=== PATIENT | female | born 1990 | race Caucasian/White ===

== ENCOUNTER 2019-04-09 15:55 | Emergency (ER) | payer OTHER, MEDICAID, SELFPAY ==
[2019-04-09 16:13] VITALS: BP 120/79; PULSE 63; RESP 18; TEMP 36.9; O2SAT 100; BMI 25.8
--- NOTE | 2019-04-09 17:28 | ED.HEATRA ---
HPI - Head Injury General Chief complaint: Head Injury Stated complaint: fall in shower, hit head hard, does not feel well Time Seen by Provider: 04/09/19 17:12 Source: patient Mode of arrival: ambulatory Limitations: no limitations History of Present Illness HPI Narrative: Patient is a 28-year-old female here for evaluation of injuries that she sustained earlier today. Patient states that she fell while she was in her bathroom. States she hit the left side of her head. There was no loss of consciousness however since then she has had a severe headache, nausea, no vomiting, balance issues, and generally not feeling very well. She was also complaining of neck pain. Has never had a head injury in the past. He is not on any blood thinners. No other injuries reported from the event. Has been ambulatory since the event. Related Data Home Medications Medication Instructions Recorded Confirmed Lantus Solostar U-100 Insulin 50 units SUBCUT QAM #0 12/05/11 04/09/19 insulin lispro [Humalog U-100 15 units SUBCUT AC #0 12/05/11 04/09/19 Insulin] escitalopram oxalate 20 mg PO DAILY 04/09/19 04/09/19 norethindrone-e.estradiol-iron 1 tab PO DAILY 04/09/19 04/09/19 prazosin 2 mg PO BEDTIME 04/09/19 04/09/19 terbinafine HCl 250 mg PO DAILY 04/09/19 04/09/19 trazodone 25 - 50 mg PO BEDTIME 04/09/19 Allergies Allergy/AdvReac Type Severity Reaction Status Date / Time No Known Drug Allergies Allergy Verified 04/09/19 16:13 Review of Systems Constitutional Denies frequent falls, Reports headache(s) and Reports lethargy Eyes Reports blurry vision ENT Ears, Nose, Mouth, and Throat: Reports dizziness, Reports headache(s), Reports neck pain and Reports disequilibrium Cardiovascular Denies chest pain and Denies dyspnea Respiratory Denies dyspnea Gastrointestinal Gastrointestinal: Denies abdominal pain, Reports nausea and Denies vomiting Musculoskeletal Denies abnormal gait, Denies back pain, Denies myalgias and Reports neck pain Integumentary/Breasts Comments: Bump on the left side of her head Neurologic Denies abnormal gait, Denies behavioral changes, Denies confusion, Reports dizziness, Denies frequent falls, Reports headache(s), Denies lack of coordination, Denies focal weakness and Reports disequilibrium Psychiatric Denies behavioral changes and Denies confusion Hematologic/Lymphatic Denies easy bleeding and Denies easy bruising COUNT INCLUDES THE [facility] Medical History Patient denies medical problems (Acute) Social History Smoking Status: Never smoker Social History Smoking Status: Never smoker Exam Initial Vital Signs Initial Vital Signs: Vital Signs Temperature 98.5 F 04/09/19 16:13 Pulse Rate 63 04/09/19 16:13 Respiratory Rate 18 04/09/19 16:13 Blood Pressure 120/79 04/09/19 16:13 Pulse Oximetry 100 04/09/19 16:13 Const General: cooperative, comfortable, well developed, well groomed and No acute distress Orientation: alert, awake and oriented x3 HENMT Head: No abrasion, contusion, hematoma and other (Patient with a contusion on the left parietal/temporal portion of the scalp) Nose: external nose normal Face and sinus: normal facial exam Eyes Pupils: PERRL Resp Effort & Inspection: normal respiratory effort Auscultation: clear to auscultation bilaterally Cardio Rate: regular rate Rhythm: regular rhythm GI Inspection: non-distended Back/Spine/Pelvis Cervical Spine: collar present, pain with cervical ROM and cervical spinal tenderness (Midline proximal cervical) Thoracic/Lumbar Spine: No thoracic spinal tenderness and No lumbar spinal tenderness Skin Other: Contusion to the left temporal/parietal aspect of the scalp. No breaks in the skin. Neuro General: alert and awake Cognition: normal cognition Speech: speech normal Motor: muscle tone normal throughout Sensory Exam: no sensory deficits noted Extrem General: normal to inspection and capillary refill normal Psych Appearance: grossly normal and well kempt Scores GCS Risa coma scale eye opening: Spontaneous [place] coma scale verbal response: Orientated Risa coma scale motor response: Obey commands [place] coma scale total score: 15 Nexus Score for C-Spine Focal Neurologic deficit present: No Midline spinal tenderness present: Yes Altered level of conciousness present: No Intoxication present: No Distracting Injury Present: No Nexus Criteria for C-spine: 1 Course Orders Ordered: ED Orders 04/09/19 17:27 CT cervical spine wo con Stat CT head/brain wo con Stat Discontinued Medications Hydrocodone Bitart/Acetaminophen ([place] 5/325) 1 tab PO NOW ONE Stop: 04/09/19 17:29 Last Admin: 04/09/19 18:11 Dose: 1 tab Vital Signs - 8 hr 04/09/19 16:13 04/09/19 18:50 Temperature 98.5 F Pulse Rate 63 66 Respiratory Rate 18 18 Blood Pressure 120/79 Blood Pressure [Left Arm] 123/77 Pulse Oximetry 100 98 MDM - Head Injury Imaging Data CT scan - head: Radiologist's impression: [address] [address] [address] Scan Report Signed Patient: Jaquelin Kramer MMR#: [id number] : 1990Acct:[id number] Age/Sex: 28 / FDate of Service: 04/09/19 Loc: ED Accession Number: [id number] Procedure: CT head/brain wo con Ordering Provider: Chintan rFank D.O. PROCEDURE: CT HEAD/BRAIN WO CON INDICATIONS: Fall, left-sided contusion, severe headache TECHNIQUE: Noncontrast 4.5 mm thick angled axial sections acquired from the foramen magnum to the vertex, with coronal and sagittal reformats. For radiation dose reduction, the following was used: automated exposure control, adjustment of mA and/or kV according to patient size. COMPARISON: None. FINDINGS: Image quality: Excellent. CSF spaces: Basal cisterns are patent. No extra-axial fluid collections. Ventricles are normal in size and shape. Brain: No midline shift. No intracranial masses or hemorrhage. [place]-white matter interface is normal. Skull and face: Calvarium and visualized facial bones are intact, without suspicious lesions. Sinuses: Visualized sinuses and mastoids are clear. IMPRESSION: Normal for age, source of current concussion symptoms is not seen. Dictated by: Elfego Wells M.D. on 04/09/2019 at 18:19 Approved by: Elfego Wells M.D. on 04/09/2019 at 18:20 CT cervical spine: Radiologist's impression: [address] [address] [address] Scan Report Signed Patient: Jaquelin Kramer MMR#: [id number] : 1990Acct:[id number] Age/Sex: 28 / FDate of Service: 04/09/19 Loc: ED Accession Number: [id number] Procedure: CT cervical spine wo con Ordering Provider: Chintan Frank D.O. PROCEDURE: CT CERVICAL SPINE WO CON INDICATIONS: Fall midline pain upper cervical region TECHNIQUE: Noncontrast 3 mm thick sections acquired from the skull base to the T4 level. Sagittal and coronal reformats were then constructed. For radiation dose reduction, the following was used: automated exposure control, adjustment of mA and/or kV according to patient size. COMPARISON: None. FINDINGS: Image quality: Excellent. Bones: No fractures or dislocations. Visualized superior ribs are intact. Soft tissues: Prevertebral soft tissues are normal in thickness. No paravertebral hematomas. No apical pneumothoraces. IMPRESSION: No trauma found. Dictated by: Elfego Wells M.D. on 04/09/2019 at 18:20 Approved by: Elfego Wells M.D. on 04/09/2019 at 18:21 [facility] Narrative Medical decision making narrative: Patient does have midline cervical spinal tenderness. She was placed in a collar in triage. Cervical spine CT shows no signs of acute fracture. She does have a contusion/hematoma on the left temporal/parietal aspect of the scalp. There is no underlying depressed skull fracture however since the incident the patient has had a severe headache, nausea, balance issues, and blurry vision. Her head CT shows no signs of acute pathology. Her cervical collar was removed. We did discuss concussions. We discussed expected course of treatment. We discussed return precautions and follow-up instructions. She expressed understanding and agreement with plan. There were no other injuries found on the exam or reported from the patient from the event. Discharge Plan Departure Patient Disposition: Home Clinical Impression: Concussion without loss of consciousness Qualifiers: Encounter type: initial encounter Qualified Code(s): S06.0X0A - Concussion without loss of consciousness, initial encounter Closed head injury Qualifiers: Encounter type: initial encounter Qualified Code(s): S09.90XA - Unspecified injury of head, initial encounter Contusion of scalp Qualifiers: Encounter type: initial encounter Qualified Code(s): S00.03XA - Contusion of scalp, initial encounter Discharge Date/Time: 04/09/19 18:52 Interventions: ED Discharge Assessment Last Done: 04/09/19 18:51 Instructions: Concussion, DI for Closed Head Injury Activity Restrictions/Additional Instructions: You can take Tylenol and/or ibuprofen for any discomfort. Tomorrow expect to be more sore than today. You can also use heat and ice on any sore muscles. You have no restrictions on your activity. You can sleep like normal you can eat and drink like normal. Contact your primary provider for follow-up return to the emergency department for any new or worsening symptoms. Prescriptions: No Action insulin lispro [Humalog U-100 Insulin] 100 UNIT/1 ML solution 15 units subcut AC Qty: 0 RF: 0 Lantus Solostar U-100 Insulin 100 UNIT/1 ML insulin pen 50 units subcut QAM Qty: 0 RF: 0 trazodone 50 mg tablet 25 - 50 mg PO BEDTIME RF: 0 norethindrone-e.estradiol-iron 1 mg-20 mcg (21)/75 mg (7) tablet 1 tab PO DAILY RF: 0 terbinafine HCl 250 mg tablet 250 mg PO DAILY RF: 0 prazosin 2 mg capsule 2 mg PO BEDTIME RF: 0 escitalopram oxalate 20 mg tablet 20 mg PO DAILY RF: 0
[2019-04-09] MEDS: HYDROCODONE/ACET 5/325 TABLET 1 TAB PO (18:11)
[2019-04-09 18:50] VITALS: BP 123/77; PULSE 66; RESP 18; O2SAT 98
--- NOTE | 2019-04-09 19:43 | PC.NURSE ---
Pt called stating she vomited on the way home. Feels 'ok' now. No new neuro changes. Had head CT in ED which was negative. Reviewed that nausea / vomiting was not unusual w/ significant concussion. Encouraged brain rest, clear liquids and cautioned to have low threshold for return (ongoing vomiting, neuro changes, any worsening pain or any other concerns).
== END 2019-04-09 18:52 | disposition home or self-care (01) ==
PROVIDERS: Emergency Provider Emergency Medicine
DX: S06.0X0A Concussion without loss of consciousness, initial encounter (principal); S00.03XA Contusion of scalp, initial encounter; W18.2XXA Fall in (into) shower or empty bathtub, initial encounter
CPT/HCPCS: 70450; 72125; 99282; 99284

== ENCOUNTER → 2022-02-14 15:40 | Outpatient (CLI) | payer MEDICARE, MEDICAID, SELFPAY ==
[2022-02-14 16:45] LABS: COVID19 -Nasal RAPID Negative (Negative)
== END ==
PROVIDERS: PCP Internal Medicine; Visit Provider Specialist
DX: Z01.812 Encounter for preprocedural laboratory examination (principal); Z20.822 Contact with and (suspected) exposure to COVID-19
CPT/HCPCS: 87635; C9803

== ENCOUNTER 2022-02-15 08:21 | Day surgery (SDC) | payer MEDICARE, MEDICAID, SELFPAY ==
[2022-02-12 12:23] VITALS: BMI 26.4
[2022-02-15] VITALS (7 sets, daily range): BP systolic 121–141; BP diastolic 75–88; PULSE 66–84; RESP 10–16; TEMP 36.2–36.7; O2SAT 96–100; BMI 26.4
--- NOTE | 2022-02-15 | PATH_ITS ---
[place] Accession Number: [id number] No. of containers..01 Tissue . 01 Material submitted: . fallopian tube - BILATERAL FALLOPIAN TUBES . 01 Diagnosis: Bilateral Fallopian Tubes, Salpingectomy: Fallopian tubes x2, complete cross-sections, with benign paratubal cysts (7-10 mm); negative for atypia or malignancy. [facility] 02/18/2022 1008 Local . 01 Electronically signed: . Miladis Hopkins MD, Pathologist NPI- [id number] . 01 Gross description: . Received in formalin, labeled with the patient's name and designated 1. Bilateral fallopian tubes, are two undesignated fimbriated fallopian tube segments. The first fallopian tube is 5.0 cm long by 0.6 cm in diameter with a mottled, purple-hale outer surface with one 1.0 cm, pedunculated, semitranslucent, smooth-walled paratubal cyst on a 2.0 cm stalk, and attached open fimbriae. The second fallopian tube is 5.0 cm long by 0.7 cm in diameter with a mottled, purple-celis outer surface with one 0.7 cm, collapsed, celis, pedunculated paratubal cyst on a 1.0 cm stalk, and attached open fimbriae. No additional lesions are identified. Otolaryngologist sections are submitted as follows: A1: Otolaryngologist first fallopian tube with entire fimbriae. A2: Otolaryngologist second fallopian tube with entire fimbriae. (DIANN:[id number]) /[facility] 02/16/2022 1310 Local . 01 Pathologist provided ICD-10: Z30.2, E10.9 . 01 CPT . 065533 Specimen Comment: A courtesy copy of this report has been sent to [phone] Performed at: 01 [facility] [address], [place], [place] [id number] MD Arley Huston MD Phone: [phone]
[2022-02-15] MEDS: INSULIN REGULAR 100 UNIT/ML 3 ML VIAL 6 UNIT SUBCUT (09:05)
--- NOTE | 2022-02-15 09:18 | PM.PREOP ---
Pre-operative Note COVID-19 COVID-19 status: Negative Result date/Date tested (Pos, Neg/Pending): 02/14/22 Criteria for continued procedure: Deterioration of the patient's condition or overall health Interval Note History & Physical reviewed/Exam performed by Physician: Yes Changes to H&P: No
--- NOTE | 2022-02-15 09:23 | P.HPOB_ITS ---
History of Present Illness History of Present Illness Reason for admission: other (Sterilization) Narrative: April Reddy is a 31 year old female admitted for laparoscopic bilateral salpingectomies for sterilization [facility] Medical History (Updated 02/15/22 @ 09:25 by Marta Clarke MD) ADHD Anxiety Cardiac arrhythmia Celiac disease (~2012) Depression Diabetes mellitus (~2002) Dissociative identity disorder Patient denies medical problems PTSD (post-traumatic stress disorder) Family History (Updated 12/31/21 @ 20:12 by Clau Russo) Father Hypertension Mental health problem Mother Hyperlipidemia Grandfather History of heart disease Grandmother Cancer Social History household members: family Smoking Status: Never smoker alcohol intake: current Meds Home Medications and Allergies Home Medications Medication Instructions Recorded Confirmed Type insulin glargine 100 unit/mL (3 50 units SUBCUT QAM ##0 12/05/11 02/12/22 History mL) subcutaneous pen (Lantus Solostar U-100 Insulin) insulin lispro 100 unit/mL 15 units SUBCUT AC ##0 12/05/11 02/12/22 History subcutaneous solution (Humalog U-100 Insulin) norethindrone 1 mg-ethinyl 1 tab PO DAILY 04/09/19 02/12/22 History estradiol 20 mcg (21)-iron 75 mg (7) tablet trazodone 50 mg tablet 25 - 50 mg PO BEDTIME 04/09/19 02/15/22 History alprazolam 0.5 mg tablet 0.5 mg PO .prn 12/03/21 02/12/22 History duloxetine 20 mg capsule,delayed 20 mg PO BID 12/03/21 02/12/22 History release methylphenidate HCl 18 mg 18 mg PO QAM 12/03/21 02/15/22 History tablet,extended release 24 hr hydrocodone 5 mg-acetaminophen 325 1 tab PO Q4-6H PRN pain #20 tabs 01/10/22 02/12/22 Rx mg tablet alprazolam 0.5 mg tablet mg 02/15/22 History duloxetine 20 mg capsule,delayed mg PO 02/15/22 History release Allergies Allergy/AdvReac Type Severity Reaction Status Date / Time No Known Drug Allergies Allergy Verified 02/15/22 09:21 Exam Vital Signs (past 8 hours): - 02/15/22 08:48 Temperature 98.0 F Pulse Rate 68 Respiratory Rate 16 Blood Pressure 141/82 H Pulse Oximetry 100 Oxygen Delivery Method Room Air Oxygen Delivery Method Room Air Narrative Exam Narrative: Preoperative diagnosis:? Sterilization Planned procedure:? Laparoscopic bilateral salpingectomy History of present illness: Patient is a 31-year-old G0 insulin-dependent diabetic with multiple other medical issues who is 100% sure she does not wish to have children.? She is have side effects and has difficulty with other forms of control and is requesting permanent sterilization by salpingectomy.? Physical exam: HEENT exam within normal limits.? Lungs are clear to auscultation percussion.? Heart is regular, rate and rhythm.? Abdomen is soft, nontender.? Pelvic exam not repeated.? Extremities without edema and nontender. Consent form for tubal ligation was reviewed with the patient.? Risk of damage to internal structures such as bowel, bladder, ureters less than 1%.? Repair may require opening abdomen or additional surgery. ? risk of infection. Minimal risk of bleeding enough to require blood transfusion which she is agreeable to if necessary to save her life.? Reaction to medication or anesthesia.? Patient is aware she will not be able to conceive after this procedure.? Consent form signed and questions answered. Pre and postop instructions reviewed with the patient.? Handouts given. Assessment & Plan Assessment and plan (1) Admission for sterilization: Status: Acute Assessment & Plan narrative: Patient admitted for sterilization by laparoscopic bilateral tubal resection COVID-19 COVID-19 status: Negative Result date/Date tested (Pos, Neg/Pending): 02/14/22 Time Spent With Patient Time with patient: less than 30 minutes Critical Care time: I spent a total of [] minutes of critical care time on this patient's care today; this time is exclusive of procedural time.
[2022-02-15] MEDS: DEXTROSE 5% WATER 500 ML 40 ML IV (09:36)
[2022-02-15] MEDS: LACTATED RINGERS 1,000 ML 100 ML IV (09:43)
--- NOTE | 2022-02-15 09:52 | SUR.PREOP ---
0950: Handoff to [employer], made aware that one paper is not witnessed/updated, consent is witnessed/updated.
[2022-02-15] MEDS: CEFAZOLIN 2 GM/20 ML SYRINGE IV (10:13)
[2022-02-15] MEDS: BUPIVACAINE 0.5% (PF) 30 ML, EPINEPHrine 0.15 MG INJ (10:24)
--- NOTE | 2022-02-15 10:50 | PM.OP.1 ---
Operative Date/Time/Diagnoses Date of procedure: 02/15/22 Time of procedure: 10:51 Pre-op diagnosis: sterilization Post-op diagnosis: same Procedure & Clinicians Procedure: Laparoscopic bilateral salpingectomies Same procedure as scheduled: Yes Indications: Wish for sterilization Surgeon: Marta Clarke Click Yes if Unassisted: Yes Anesthesia Type: General Operative Notes Findings: Adhesions of the omentum to the anterior abdominal wall right upper quadrant. Normal tubes, ovaries, uterus. No internal hernias. Normal bowel surface. Normal liver edge. Normal-appearing appendix. Closure Type: primary Specimen(s): other (Bilateral fallopian tubes) Estimated Blood Loss (mL): 2 Blood products transfused: none Procedure in detail: Patient was brought to the operating room where she underwent general anesthesia. She was placed in low yellowfin stirrups and prepped and draped in usual sterile fashion. 2 g of Ancef were in prior to beginning of the case. Pulsatile stockings were in place and functional. Warming was with blankets. A sponge stick was placed in the vagina. The area of the incisions were injected with half percent Marcaine with epinephrine. An incision was made in the umbilicus with a scalpel and the Verres needle placed in the abdomen. Confirmation of correct placement of the needle was performed by withdrawing on the syringe and then allowing fluid to fall freely through the needle. The abdomen was insufflated to 3 L of CO2. A 5 mm trocar was placed under direct visualization. 2 other 5 mm trochars were placed in the right and left lower quadrant under direct visualization after incising the skin. There did not appear to be any damage with placement of the trocars. The right fallopian tube was grasped and removed by cauterizing and cutting the mesosalpinx and across the fallopian tube at the junction with the uterus with the power seal generator. Same procedure was performed on the left fallopian tube. The tubes were brought up out of the abdomen. Adequate hemostasis was noted. The CO2 was allowed to escape from the abdomen. The trochars were removed. Skin was closed with 4-0 monocryl. The patient went to recovery room in good condition. Complications: none Post-operative Condition: stable Disposition: same day surgery Plan for aftercare: Home when awake and stable.
--- NOTE | 2022-02-15 11:10 | SUR.OPER ---
Lithotomy on padded OR bed, head on pillow, arms secured on padded arm boards at <90 degrees abduction. Legs secured in padded yellow fins stirrups.
[2022-02-15] MEDS: INSULIN REGULAR 100 UNIT/ML 3 ML VIAL SUBCUT (11:11)
[2022-02-15] MEDS: OXYCODONE/ACETAMINOPHEN 5/325 TABLET 1 TAB PO (11:22)
[2022-02-15] MEDS: ONDANSETRON 4 MG/2 ML INJ IV (11:22)
== END 2022-02-15 11:29 | disposition home or self-care (01) ==
PROVIDERS: PCP Internal Medicine; Referring Provider Specialist; Visit Provider Specialist
PROC: 0UT74ZZ Resection of Bilateral Fallopian Tubes, Percutaneous Endoscopic Approach (ICD-10-PCS; CPT 58661; principal; 2022-02-15 09:45)
DX: Z30.2 Encounter for sterilization (principal); E10.9 Type 1 diabetes mellitus without complications; I34.1 Nonrheumatic mitral (valve) prolapse; Z79.4 Long term (current) use of insulin; N83.8 Other noninflammatory disorders of ovary, fallopian tube and broad ligament
CPT/HCPCS: 58661; 81025; 82962; J0171; J0690; J1885; J2250; J2405; J3010